=== PATIENT | female | born 1935 | race Caucasian/White ===

== ENCOUNTER → 2017-09-13 | Day surgery (SDC) | payer MEDICARE ==
[~2017-09-13] MED LIST: ASPIR 8181 MG PO; ATENOLOL100 MG PO; AZOR 10-40 MG1 EACH PO; BENICAR HCT 201 EACH PO; BENICAR20 MG PO; FENTANYL CITRATE/PF 100MCG/2 ML INJ ONE; GABADONE CAPSU1 EACH PO; LASIX20 MG PO; MIDAZOLAM HCL 2 MG/2 ML VIAL ONE; OR PHACO EYE KIT ONE; PREOP PHACO EYE KIT ONE; TOBRAMYCIN/DEXAMETHASONE(OPTH) 3.5 GM TUBE ONE
--- OUTSIDE RECORDS SUMMARY | 2017-09-13 09:59 | XMS REPORT | Clinical Summary ---
Author Author [facility] Organization [facility] Address Unknown Phone Unavailable Care Team Providers Care Marketing Editor Name Role Phone Kim Landaverde MD PCP Allergies Active Allergy Reactions Severity Noted Date Comments Codeine 09/17/2015 Meperidine 09/17/2015 Indomethacin 09/17/2015 Neomycin 09/17/2015 Polymyxin B 09/17/2015 Pentazocine Lactate 09/17/2015 Current Medications Prescription Sig. Disp. Refills Start End Date Status Date atenolol (TENORMIN) 50 MG Take 2 tablets (100 mg 180 tablet 1 Active tablet total) by mouth daily. 17 furosemide (LASIX) 20 mg Take 1 tablet (20 mg 90 tablet 1 05/05/19 Active tabletIndications: total) by mouth daily. 18 Localized edema, Essential hypertension UNABLE TO FIND Super Beets Supplement QD Active amlodipine-olmesartan Take 1 tablet by mouth Active (JAN) 5-40 mg per tablet daily. gabapentin (NEURONTIN) Take 300 mg by mouth 3 10/08/19 Discontin 300 MG capsule (three) times a day. 17 ued atenolol (TENORMIN) 50 MG Take 1 tablet (50 mg 90 tablet 3 10/24/19 10/24/19 tabletIndications: total) by mouth daily. 16 17 Essential hypertension furosemide (LASIX) 20 MG Take 1 tablet (20 mg 90 tablet 3 12/11/19 10/08/19 Discontin tabletIndications: Edema total) by mouth 2 (two) 16 17 ued times a day. JAN 5-40 mg per TAKE 1 TABLET BY MOUTH 90 tablet 0 02/05/20 Discontin tabletIndications: DAILY 16 17 ued Essential hypertension amlodipine-olmesartan TAKE 1 TABLET BY MOUTH 90 tablet 0 10/05/19 Discontin (JAN) 5-40 mg per ONCE DAILY 17 17 ued tabletIndications: Essential hypertension hydroCHLOROthiazide Take 25 mg by mouth 08/26/19 Discontin (HYDRODIURIL) 25 MG daily. 18 ued tablet aspirin (ECOTRIN) 81 MG Take 81 mg by mouth 05/05/19 Discontin enteric coated tablet daily. 18 ued clonIDINE (CATAPRES) 0.1 Take 0.1 mg by mouth. BID 11/11/19 Discontin MG tablet as directed 17 ued furosemide (LASIX) 20 mg Take 20 mg by mouth 2 11/11/19 Discontin tablet (two) times a day. Pt 17 ued taking it only once a day atenolol (TENORMIN) 50 MG Take 100 mg by mouth. 03/18/20 Discontin tablet 17 ued olmesartan (BENICAR) 40 Take 1 tablet (40 mg 30 tablet 11 12/04/19 05/05/19 Discontin MG tabletIndications: total) by mouth daily. 17 18 ued Essential hypertension furosemide (LASIX) 20 mg Take 20 mg by mouth as 05/05/19 Discontin tablet needed. 18 ued amlodipine-olmesartan Take 1 tablet by mouth 90 tablet 1 05/05/19 Discontin (JAN) 5-40 mg per daily. 18 18 ued tabletIndications: Essential hypertension Active Problems Problem Noted Date Idiopathic peripheral neuropathy 02/15/2017 Positive RONALD (antinuclear antibody) 02/15/2017 Hyperglycemia 02/15/2017 B12 deficiency 02/15/2017 Encounters Date Type Specialty Care Team Description 08/25/2017 Office Visit Internal Medicine Cassi Landaverde MD Essential hypertension; Vitamin B 12 deficiency; Vitamin D deficiency 06/02/2017 Clinical Internal Medicine Support 05/05/2017 Office Visit Internal Medicine Cassi Landaverde MD Localized edema (Primary Dx); Essential hypertension 05/03/2017 Telephone Internal Medicine Cassi Landaverde MD 03/18/2017 Refill Internal Medicine Mariaelena Ramey MA 02/15/2017 Office Visit Neurology Kim Cr MD Idiopathic peripheral neuropathy (Primary Dx); Positive RONALD (antinuclear antibody); Hyperglycemia; B12 deficiency 02/11/2017 Telephone Internal Medicine Cassi Landaverde MD 12/31/2016 Telephone Internal Medicine Mariaelena Ramey MA 12/28/2016 [facility] Radiology Cassi Lanadverde MD Annual physical exam; Encounter Screening for breast cancer 12/28/2016 [facility] Radiology Cassi Landaverde MD Annual physical exam Encounter 12/28/2016 Telephone Internal Medicine Mariaelena Ramey MA 12/28/2016 Ancillary Internal Medicine Cassi Landaverde MD Annual physical exam Orders 12/03/2016 Office Visit Internal Medicine Cassi Landaverde MD Dysuria (Primary Dx); Axonal sensorimotor neuropathy; Annual physical exam; Essential hypertension; Screening for breast cancer 11/16/2016 Lab Lab Franky Moise Jr., MD Chronic kidney disease, stage II (mild) (Primary Dx) 11/10/2016 Office Visit Internal Medicine Clauida Wilkerson MD Essential hypertension (Primary Dx) 10/22/2016 Office Visit Internal Medicine Cassi Landaverde MD Vertigo (Primary Dx) 10/20/2016 Telephone Internal Medicine Mariaelena Ramey MA 10/16/2016 [facility] Radiology Cassi Landaverde MD Lip numbness; Encounter Hx-TIA (transient ischemic attack) 10/07/2016 Office Visit Internal Medicine Cassi Landaverde MD Lip numbness (Primary Dx); Hx-TIA (transient ischemic attack) 10/07/2016 Procedure Pass Radiology 10/04/2016 Refill Internal Medicine Cassi Landaverde MD Essential hypertension after 09/12/2016 Immunizations Name Dates Previously Given Next Due Influenza Trivalent 02/02/2017, 02/07/2016, 01/19/2015 Pneumococcal Conjugate 02/07/2016 13-Valent Pneumococcal 10/07/2012 Polysaccharide Zoster 10/07/2014 Family History Medical History Relation Name Comments Heart disease Father Stroke Father Hypertension Mother Stroke Mother Relation Name Status Comments Father (Age 83) Mother (Age 75) Social History Tobacco Use Types Packs/Day Years Used Date Never Smoker Smokeless Tobacco: Never Used Alcohol Use Drinks/Week oz/Week Comments No Sex Assigned at Date Recorded Not on file Last Filed Vital Signs Vital Sign Reading Time Taken Blood Pressure 131/82 08/25/2017 10:51 AM CDT Pulse 62 08/25/2017 10:51 AM CDT Temperature 36.8 C (98.2 F) 08/25/2017 10:51 AM CDT Respiratory Rate - - Oxygen Saturation 97% 08/25/2017 10:51 AM CDT Inhaled Oxygen - - Concentration Weight 74.4 kg (164 lb) 08/25/2017 10:51 AM CDT Height 158.8 cm (5' 2.5") 08/25/2017 10:51 AM CDT Body Mass Index 29.52 08/25/2017 10:51 AM CDT Plan of Treatment Health Maintenance Due Date Last Done Comments SHINGRIX VACCINE (#1) 12/09/1987 INFLUENZA VACCINE 11/16/2017 02/02/2017, 02/07/2016, 01/19/2015 PNEUMOCOCCAL Completed 10/07/2012 POLYSACCHARIDE VACCINE AGE 65 AND OVER ZOSTER VACCINE Completed 10/07/2014 PNEUMOCOCCAL-13 Completed 02/07/2016 Results * Vitamin D 25 hydroxy level (08/26/2017 10:23 AM) Component Value Ref Range Vitamin D, 25-hydroxy 33 30 - 100 ng/mL Comment: Vitamin D Status 25-OH Vitamin D: Deficiency: <20 ng/mL Insufficiency: 20 - 29 ng/mL Optimal: > or=30 ng/mL For 25-OH Vitamin D testing on patients on D2-supplementation and patients for whom quantitation of D2 and D3 fractions is required, the QuestAssureD(TM) 25-OH VIT D, (D2,D3), LC/MS/MS is recommended: order code 05023 (patients >2yrs). For more information on this test, go to: http://education.[employer].Affymax/faq/SXI207 (This link is being provided for informational/educational purposes only.) Specimen Performing Laboratory [facility] Narrative FASTING:NO FASTING: NO * CBC with platelet and differential (08/26/2017 10:23 AM) Only the most recent of 2 results within the time period is included. Component Value Ref Range WBC 4.6 3.8 - 10.8 Thousand/uL RBC 4.22 3.80 - 5.10 Million/uL HGB 12.4 11.7 - 15.5 g/dL HCT 36.8 35.0 - 45.0 % MCV 87.2 80.0 - 100.0 fL MCH 29.4 27.0 - 33.0 pg MCHC 33.7 32.0 - 36.0 g/dL RDW 13.5 11.0 - 15.0 % Platelet count 178 140 - 400 Thousand/uL MPV 10.7 7.5 - 12.5 fL Neutrophils, absolute 3,013 1,500 - 7,800 cells/uL Lymphocytes, absolute 1,026 850 - 3,900 cells/uL Monocytes, absolute 391 200 - 950 cells/uL Eosinophils, absolute 129 15 - 500 cells/uL Basophils, absolute 41 0 - 200 cells/uL Neutrophils 65.5 % Lymphocytes 22.3 % Monocytes 8.5 % Eosinophils 2.8 % Basophils + RC 0.9 % Specimen Performing Laboratory [facility] Narrative FASTING:NO FASTING: NO * Vitamin B12 level (08/26/2017 10:23 AM) Only the most recent of 2 results within the time period is included. Component Value Ref Range Vitamin B12 728 200 - 1,100 pg/mL Specimen Performing Laboratory [facility] Narrative FASTING:NO FASTING: NO * Comprehensive metabolic panel (08/26/2017 10:23 AM) Only the most recent of 3 results within the time period is included. Component Value Ref Range Glucose 95 65 - 139 mg/dL Comment: Non-fasting reference interval BUN, whole blood 17 7 - 25 mg/dL Creatinine 0.94 (H) 0.60 - 0.93 mg/dL Comment: For patients >49 years of age, the reference limit for Creatinine is approximately 13% higher for people identified as -[place]. EGFR Non-Afr. [place] 58 (L) > OR=60 mL/min/1.73m2 EGFR 67 > OR=60 mL/min/1.73m2 BUN/creatinine ratio 18 6 - 22 (calc) Sodium 142 135 - 146 mmol/L Potassium 4.1 3.5 - 5.3 mmol/L Chloride 105 98 - 110 mmol/L CO2 30 20 - 31 mmol/L Calcium 9.4 8.6 - 10.4 mg/dL Protein 6.5 6.1 - 8.1 g/dL Albumin, S 4.2 3.6 - 5.1 g/dL Globulin, total 2.3 1.9 - 3.7 g/dL (calc) Albumin/globulin ratio 1.8 1.0 - 2.5 (calc) Total bilirubin 0.5 0.2 - 1.2 mg/dL Alkaline phosphatase 43 33 - 130 U/L AST 22 10 - 35 U/L ALT 11 6 - 29 U/L Specimen Performing Laboratory [facility] Narrative FASTING:NO FASTING: NO * ECG 12 lead (08/25/2017 10:53 AM) Component Value Ref Range Ventricular rate 59 Atrial rate 59 VT interval 274 QRSD interval 142 QT interval 448 QTC interval 443 P axis 1 72 QRS axis 1 50 T wave axis 29 EKG impression Sinus bradycardia with 1st degree AV block-Right bundle branch block-Abnormal ECG-In automated comparison with ECG of 24-APR-2011 09:48,-VT interval has increased-Right bundle branch block is now present- Specimen Performing Laboratory [facility] [address] [place] [address] * Mammo Screening w Cad Bilateral (12/28/2016 2:04 PM) Specimen Performing Laboratory [facility] [address] [place] [address] Narrative PROCEDURE: MAMMO SCREENING W CAD BILATERAL Computer aided detection was utilized for the interpretation of the digital bilateral screening mammography. INDICATION:Routine screening. COMPARISON: 10/16/2014 through 12/12/2013 DENSITY: The breasts are heterogenously dense, which may obscure small masses. FINDINGS:Scattered coarse and dystrophic benign-appearing calcifications are noted bilaterally. Vascular arterial wall calcifications are noted bilaterally. A metallic marker in the upper midline left breast denotes the site of prior benign biopsy. There is no suspicious mass, microcalcification, or architectural distortion identified. There is no significant interval change compared to prior exams. IMPRESSION:No mammographic evidence of malignancy. RECOMMENDATION: Correlation with physical exam and annual screening mammography. BI-RADS 2: BENIGN This facility is accredited by the [place] [employer] for Mammography. A negative x-ray report should not delay biopsy if a dominant or clinically suspicious mass is present.Not all cancers are identified by x-ray. [id number] * Bone Density (12/28/2016 1:30 PM) Specimen Performing Laboratory [facility] [address] [place] [address] Narrative EXAMINATION:BONE DENSITY CLINICAL HISTORY:Z00.00 Encounter for general adult medical examination without abnormal findings, post menopause.Osteoporosis screening. COMPARISON:None. The results of this study expressed as bone mineral density (BMD) were as follows: AP spine (L1- L4) BMD:0.991g/cm2 T-Score: -0.5 Right Femur (Total Mean): BMD: 0.588g/cm2 T-Score: -1.2 Impression: Osteopenia right femur. Within normal range lumbar spine [id number] A copy of this scans including a report detailing these results will follow. Note: The world health organization (WHO) has classified the patient's T-score as follows: Above (-1) as normal (-1) to (-2.5) as low (osteopenia) Below (-2.5) as abnormally low (osteoporosis, increased fracture risk) Procedure Note Hm Interface, Radiology Results Incoming - 12/28/2016 1:52 PM CDT EXAMINATION: BONE DENSITY CLINICAL HISTORY: Z00.00 Encounter for general adult medical examination without abnormal findings, post menopause. Osteoporosis screening. COMPARISON: None. The results of this study expressed as bone mineral density (BMD) were as follows: AP spine (L1- L4) BMD: 0.991 g/cm2 T-Score: -0.5 Right Femur (Total Mean): BMD: 0.588 g/cm2 T-Score: -1.2 Impression: Osteopenia right femur. Within normal range lumbar spine [id number] A copy of this scans including a report detailing these results will follow. Note: The world health organization (WHO) has classified the patient's T-score as follows: Above (-1) as normal (-1) to (-2.5) as low (osteopenia) Below (-2.5) as abnormally low (osteoporosis, increased fracture risk) * SSA/SSB antibody (12/07/2016 11:40 AM) Component Value Ref Range Sjogren's SS-A antibody <0.2 0.0 - 0.9 AI Sjogren's SS-B antibody <0.2 0.0 - 0.9 AI Specimen Performing Laboratory [facility] Narrative Performed at: - [id number] Upholstery Cleaner: Venancio Corona MD, Phone:[phone] * Immunofixation, serum (12/07/2016 11:40 AM) Component Value Ref Range Immunofixation, serum CommentComment: An apparent normal immunofixation pattern. IgG 733 700 - 1,600 mg/dL IgA 152 64 - 422 mg/dL IgM 58 26 - 217 mg/dL Specimen Performing Laboratory [facility] Narrative Performed at: [id number] Upholstery Cleaner: YENNY Cartagena MD, Phone:[phone] Performed at: [id number] Upholstery Cleaner: Venancio Corona MD, Phone:[phone] * RONALD (12/07/2016 11:40 AM) Component Value Ref Range RONALD direct Positive (A) Negative Specimen Performing Laboratory [facility] Narrative Performed at: [id number] Upholstery Cleaner: Venancio Corona MD, Phone:[phone] * Thyroid stimulating hormone (12/07/2016 11:40 AM) Component Value Ref Range TSH 4.360 0.450 - 4.500 uIU/mL Specimen Performing Laboratory [facility] Narrative Performed at: [id number] Upholstery Cleaner: Venancio Corona MD, Phone:[phone] * Vitamin B6 level, plasma (12/07/2016 11:40 AM) Component Value Ref Range Vitamin B6 11.6 2.0 - 32.8 ug/L Specimen Performing Laboratory [facility] Narrative Performed at: [id number] Upholstery Cleaner: Claudy Hair MD, Phone:[phone] * Hemoglobin A1c (12/07/2016 11:40 AM) Component Value Ref Range Hemoglobin A1C 5.4 4.8 - 5.6 % Comment: Pre-diabetes: 5.7 - 6.4 Diabetes: >6.4 Glycemic control for adults with diabetes: <7.0 Specimen Performing Laboratory [facility] Narrative Performed at:[address] [place], [place] [id number] Upholstery Cleaner: Venancio Corona MD, Phone:[phone] * Lipid panel (12/07/2016 11:40 AM) Component Value Ref Range Cholesterol 220 (H) 100 - 199 mg/dL Triglycerides 183 (H) 0 - 149 mg/dL HDL cholesterol 49 >39 mg/dL VLDL cholesterol colt 37 5 - 40 mg/dL LDL cholesterol 134 (H) 0 - 99 mg/dL calculated Non-HDL cholesterol 171 (H) 0 - 129 mg/dL Specimen Performing Laboratory [facility] Narrative Performed at: - [id number] Upholstery Cleaner: Venancio Corona MD, Phone:[phone] * POC urinalysis dipstick (12/03/2016 3:46 PM) Component Value Ref Range Color urine, POC Dark Yellow Clarity urine, POC Slightly Hazy Glucose urine, POC Negative Negative Bilirubin urine, POC Positive (A) Negative Ketones urine, POC Negative Negative Specific gravity urine, >/=1.030 1.005 - 1.030 POC Blood urine, POC Negative Negative pH urine, POC 6.0 5.0, 5.5, 6.0, 6.5, 7.0, 7.5, 8.0, 8.5 Protein urine, POC 1+ (A) Negative Urobilinogen urine, POC <2.0 <2.0 Nitrite urine, POC Negative Negative Leukocyte esterase urine, Negative Negative POC Specimen Performing Laboratory Urine * Estimated GFR (11/16/2016 10:45 AM) Component Value Ref Range GFR Non Af Amer 53 (A) mL/min/1.73 m2 GFR Af Amer 65 mL/min/1.73 m2 Comment: Chronic kidney disease: <60 mL/min/1.73m2 Kidney failure: <15 mL/min/1.73m2 The estimated GFR is calculated from the IDMS-traceable Modification of Diet in Renal Disease Equation. The accuracy of the calculation is poor when the creatinine is normal. Calculated values >90 mL/min/1.73m2 are not reported. This equation has not been validated in children (<18 years), women, the elderly (>70 years), or ethnic groups other than Caucasians and Americans. Specimen Performing Laboratory Plasma specimen [facility] DEPARTMENT OF PATHOLOGY AND GENOMIC MEDICINE [address] [place] [id number] * Urinalysis, automated with microscopy (11/16/2016 10:45 AM) Component Value Ref Range Color, UA Yellow Appearance, UA Cloudy Specific gravity, UA 1.015 1.001 - 1.035 pH, UA 5.0 5.0 - 8.5 Protein, UA 1+ (A) Negative Glucose, UA Negative Negative Ketones, UA Negative Negative Bilirubin, UA Negative Negative Blood, UA Small (A) Negative Nitrite, UA Negative Negative Urobilinogen, UA <2.0 <2.0 Leukocyte esterase, UA Large (A) Negative Epithelial cells, UA 2 /HPF Round epithelial cells, <1 0 - 1 /HPF UA WBC, UA >180 (H) 0 - 4 /HPF RBC, UA 7 (H) 0 - 2 /HPF Bacteria, UA Few None seen WBC clumps, UA Moderate (A) Yeast, UA None seen Yeast with pseudohyphae, None seen UA Specimen Performing Laboratory Urine [facility] DEPARTMENT OF PATHOLOGY AND GENOMIC MEDICINE [address] [place] [id number] * Parathyroid hormone (11/16/2016 10:45 AM) Component Value Ref Range PTH 67 (H) 15 - 65 pg/mL Specimen Performing Laboratory Blood [facility] DEPARTMENT OF PATHOLOGY AND GENOMIC MEDICINE [address] [place] [address] * MRI Brain W Wo Contrast (10/16/2016 6:18 PM) Specimen Performing Laboratory [facility] [address] [place] [address] Narrative EXAMINATION:MRI BRAIN W WO CONTRAST CLINICAL HISTORY:R20.0 Anesthesia of skin, Z86.73 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 FINDINGS: Pre and postcontrast MRI of the brain is interpreted. Diffusion imaging demonstrates no abnormal restricted diffusion. Mild involutional changes of the brain are age-appropriate. No extra-axial collection or mass effect is seen. No hemorrhage is identified. Major vascular flow-voids are preserved. No abnormal parenchymal or leptomeningeal enhancement is present. IMPRESSION: No evidence of recent infarct or other acute intracranial abnormality. Unremarkable MRI of the brain. 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 FINDINGS: Pre and postcontrast MRI of the brain is interpreted. Diffusion imaging demonstrates no abnormal restricted diffusion. Mild involutional changes of the brain are age-appropriate. No extra-axial collection or mass effect is seen. No hemorrhage is identified. Major vascular flow-voids are preserved. No abnormal parenchymal or leptomeningeal enhancement is present. IMPRESSION: No evidence of recent infarct or other acute intracranial abnormality. Unremarkable MRI of the brain. [facility]-[id number] * RONALD SCREEN W IFA W REFLEX TO TITER (10/07/2016 12:29 PM) Component Value Ref Range RONALD screen POSITIVE (A) NEGATIVE Comment: RONALD IFA is a first line screen for detecting the presence of up to approximately 150 autoantibodies in various autoimmune diseases. A positive RONALD IFA result is suggestive of autoimmune disease and reflexes to titer and pattern. Further laboratory testing may be considered if clinically indicated. Visit Physician FAQs for interpretation of all antibodies in the [place], prevalence, and association with diseases at http://Power OLEDs.P2P-Next/ faq/HVO346 RONALD pattern FEW NUCLEAR DOTS (1-6) (A) Comment: Nuclear dots (1-6 in number per cell) pattern is seen in Sjogren's syndrome, systemic lupus erythematosus (SLE), systemic sclerosis (scleroderma), polymyositis, and asymptomatic individuals. RONALD titer 1:160 (H) titer Comment: Reference Range <1:40 Negative 1:40-1:80 L ow Antibody Level >1:80 Elevated Antibody Level Specimen Performing Laboratory [facility] * Lyme total Ab w reflex (10/07/2016 12:29 PM) Component Value Ref Range Lyme Ab <0.90 index Comment: Index Interpretatio n ----- - < 0.90 Negative 0.90-1.09 Equivocal > 1.09 Positive As recommended by the Food and Drug Administration (FDA), all samples with positive or equivocal results in a Borrelia burgdorferi antibody screen will be tested using a blot method. Positive or equivocal screening test results should not be interpreted as truly positive until verified as such using a supplemental assay (e.g., B. burgdorferi blot). The screening test and/or blot for B. burgdorferi antibodies may be falsely negative in early stages of Lyme disease, including the period when erythema migrans is apparent. Specimen Performing Laboratory [facility] * Sedimentation rate (10/07/2016 12:29 PM) Component Value Ref Range Sedimentation rate 9 < OR=30 mm/h Specimen Performing Laboratory [facility] * C-reactive protein (10/07/2016 12:29 PM) Component Value Ref Range CRP 0.18 <0.80 mg/dL Comment: Please be advised that patients taking Carboxypenicillins may exhibit falsely decreased C-Reactive Protein levels due to an analytical interference in this assay. Specimen Performing Laboratory [facility] * Serum electrophoresis (10/07/2016 12:29 PM) Component Value Ref Range Protein 6.9 6.1 - 8.1 g/dL Albumin, S 4.3 3.8 - 4.8 g/dL Irmjg-[id number] 0.3 0.2 - 0.3 g/dL Ssitd-3-cesxnooo 0.8 0.5 - 0.9 g/dL Beta-1 globulin 0.4 0.4 - 0.6 g/dL Beta-2 globulin 0.3 0.2 - 0.5 g/dL Gamma, CSF 0.8 0.8 - 1.7 g/dL Interpretation Comment: Normal Electrophoretic Pattern Specimen Performing Laboratory [facility] after 09/12/2016 Insurance Payer Benefit Subscriber ID Type Phone Address Plan / Group [employer]HC MEDICARE UNITED[employer] xxxxxxxxx [employer] Home: [facility] [place] [phone]
== END | disposition home or self-care (01) ==
LOC: OR 09:56
PROVIDERS: ATTEND Ophthalmology
DX: H25.12 Age-related nuclear cataract, left eye (principal); I12.9 Hypertensive chronic kidney disease with stage 1 through stage 4 chronic kidney disease, or unspecified chronic kidney disease; N18.9 Chronic kidney disease, unspecified; G47.30 Sleep apnea, unspecified; E53.8 Deficiency of other specified B group vitamins; E55.9 Vitamin D deficiency, unspecified; Z88.1 Allergy status to other antibiotic agents; Z88.5 Allergy status to narcotic agent; Z88.8 Allergy status to other drugs, medicaments and biological substances; Z79.82 Long term (current) use of aspirin
CPT/HCPCS: 66984; J2250; V2788

== ENCOUNTER 2017-09-14 08:23 | Observation (INO) | payer MEDICARE ==
[~2017-09-14] VITALS: Ht 157.5 cm; Wt 52.8 kg
[2017-09-14] VITALS (7 sets, daily range): BP systolic 121–149; BP diastolic 68–79
[~2017-09-14 08:23] MED LIST changes: -BENICAR20 MG PO; -FENTANYL CITRATE/PF 100MCG/2 ML INJ ONE; -MIDAZOLAM HCL 2 MG/2 ML VIAL ONE; -OR PHACO EYE KIT ONE; -PREOP PHACO EYE KIT ONE; -TOBRAMYCIN/DEXAMETHASONE(OPTH) 3.5 GM TUBE ONE
--- OUTSIDE RECORDS SUMMARY | 2017-09-14 08:28 | XMS REPORT | Clinical Summary ---
Author Author [facility] Organization [facility] Address Unknown Phone Unavailable Care Team Providers Care Lead Systems Analyst Name Role Phone Kim Landaverde MD PCP [...] Telephone Internal Medicine Mariaelena Ramey MA 12/28/2016 [facility] Radiology Cassi Landaverde MD Annual physical exam; Encounter Screening for breast cancer 12/28/2016 [facility] Radiology Cassi Landaverde MD Annual physical [...] (Primary Dx) 11/10/2016 Office Visit Internal Medicine Claudia Wilkerson MD Essential hypertension (Primary Dx) 10/22/2016 Office Visit Internal Medicine Cassi Landaverde MD Vertigo (Primary Dx) 10/20/2016 Telephone Internal Medicine Mariaelena Ramey MA 10/16/2016 [facility] Radiology Cassi Landaverde MD Lip numbness; Encounter Hx-TIA (transient ischemic attack) 10/07/2016 Office Visit Internal Medicine Cassi Landaverde MD Lip numbness (Primary Dx); Hx-TIA (transient ischemic attack) 10/07/2016 Procedure Pass Radiology 10/04/2016 Refill Internal Medicine Cassi Landaverde MD Essential hypertension after 09/13/2016 Immunizations Name Dates Previously Given Next Due [...] D, (D2,D3), LC/MS/MS is recommended: order code 80882 (patients >2yrs). For more information on this test, go to: http://education.[employer].stylefruits/faq/ZLD150 (This link is being provided for informational/educational [...] approximately 13% higher for people identified as -[place]. EGFR Non-Afr. [place] 58 (L) > OR=60 mL/min/1.73m2 EGFR 67 [...] Range Ventricular rate 59 Atrial rate 59 NH interval 274 QRSD interval 142 QT interval 448 QTC interval 443 P axis 1 72 QRS axis 1 50 T wave axis 29 EKG impression Sinus bradycardia with 1st degree AV block-Right bundle branch block-Abnormal ECG-In automated comparison with ECG of 24-APR-2011 09:48,-NH interval has increased-Right bundle branch block is now present- Specimen Performing Laboratory [facility] M[facility] [address] [place] [address] * Mammo Screening w Cad Bilateral (12/28/2016 2:04 PM) Specimen Performing Laboratory [facility] [address] [place] [address] Narrative PROCEDURE: MAMMO SCREENING W CAD BILATERAL [...] BENIGN This facility is accredited by the [place] [employer] for Mammography. A negative x-ray report should not delay biopsy if a dominant or clinically suspicious mass is present.Not all cancers are identified by x-ray. DWS01 * Bone Density (12/28/2016 1:30 PM) Specimen Performing Laboratory [facility] [address] [place] [address] Narrative EXAMINATION:BONE DENSITY CLINICAL HISTORY:Z00.00 Encounter for general adult medical examination without abnormal findings, post menopause.Osteoporosis screening. COMPARISON:None. The results of this study expressed as bone mineral density (BMD) were as follows: AP spine (L1- L4) BMD:0.991g/cm2 T-Score: -0.5 Right Femur (Total Mean): BMD: 0.588g/cm2 T-Score: -1.2 Impression: Osteopenia right femur. Within normal range lumbar spine [id number] A copy of this scans including a [...] right femur. Within normal range lumbar spine [id number] A copy of this scans including a [...] Laboratory Blood [facility] Narrative Performed at: - [id number] Termite Control Servicer: Venancio Corona MD, Phone:[phone] * Immunofixation, serum (12/07/2016 11:40 AM) Component Value Ref Range Immunofixation, serum CommentComment: An apparent normal immunofixation pattern. IgG 733 700 - 1,600 mg/dL IgA 152 64 - 422 mg/dL IgM 58 26 - 217 mg/dL Specimen Performing Laboratory [facility] Narrative Performed at: [id number] Termite Control Servicer: YENNY Cartagena MD, Phone:[phone] Performed at: [id number] Termite Control Servicer: Venancio Corona MD, Phone:[phone] * RONALD (12/07/2016 11:40 AM) Component Value Ref Range RONALD direct Positive (A) Negative Specimen Performing Laboratory [facility] Narrative Performed at: [id number] Termite Control Servicer: Venancio Corona MD, Phone:[phone] * Thyroid stimulating hormone (12/07/2016 11:40 AM) Component Value Ref Range TSH 4.360 0.450 - 4.500 uIU/mL Specimen Performing Laboratory [facility] Narrative Performed at: [id number] Termite Control Servicer: Venancio Corona MD, Phone:[phone] * Vitamin B6 level, plasma (12/07/2016 11:40 AM) Component Value Ref Range Vitamin B6 11.6 2.0 - 32.8 ug/L Specimen Performing Laboratory [facility] Narrative Performed at: [id number] Termite Control Servicer: Claudy Hair MD, Phone:[phone] * Hemoglobin A1c (12/07/2016 11:40 AM) Component Value Ref Range Hemoglobin A1C 5.4 4.8 - 5.6 % Comment: Pre-diabetes: 5.7 - 6.4 Diabetes: >6.4 Glycemic control for adults with diabetes: <7.0 Specimen Performing Laboratory [facility] Narrative Performed at:[address] [place], [place] [id number] Termite Control Servicer: Venancio Corona MD, Phone:[phone] * Lipid panel (12/07/2016 11:40 AM) Component Value Ref Range Cholesterol 220 (H) 100 - 199 mg/dL Triglycerides 183 (H) 0 - 149 mg/dL HDL cholesterol 49 >39 mg/dL VLDL cholesterol colt 37 5 - 40 mg/dL LDL cholesterol 134 (H) 0 - 99 mg/dL calculated Non-HDL cholesterol 171 (H) 0 - 129 mg/dL Specimen Performing Laboratory [facility] Narrative Performed at: - [id number] Termite Control Servicer: Venancio Corona MD, Phone:[phone] * POC urinalysis dipstick (12/03/2016 3:46 PM) [...] and Americans. Specimen Performing Laboratory Plasma specimen [facility] DEPARTMENT OF PATHOLOGY AND GENOMIC MEDICINE [address] [place] [address] * Urinalysis, automated with microscopy (11/16/2016 10:45 [...] None seen UA Specimen Performing Laboratory Urine [facility] DEPARTMENT OF PATHOLOGY AND GENOMIC MEDICINE [address] [place] [address] * Parathyroid hormone (11/16/2016 10:45 AM) Component Value Ref Range PTH 67 (H) 15 - 65 pg/mL Specimen Performing Laboratory Blood [facility] DEPARTMENT OF PATHOLOGY AND GENOMIC MEDICINE [address] [place] [address] * MRI Brain W Wo Contrast (10/16/2016 6:18 PM) Specimen Performing Laboratory [facility] [address] [place] [address] Narrative EXAMINATION:MRI BRAIN W WO CONTRAST CLINICAL [...] intracranial abnormality. Unremarkable MRI of the brain. [id number] Procedure Note Interface, Radiology Results Incoming - [...] intracranial abnormality. Unremarkable MRI of the brain. [facility]-[id number] * RONALD SCREEN W IFA W REFLEX [...] for interpretation of all antibodies in the [place], prevalence, and association with diseases at http://FlexGen.[employer]/ faq/NGJ076 RONALD pattern FEW NUCLEAR DOTS (1-6) (A) [...] Albumin, S 4.3 3.8 - 4.8 g/dL Xnefq-3-caadugwg 0.3 0.2 - 0.3 g/dL Qqwjf-9-ktnqekfk 0.8 0.5 - 0.9 g/dL Beta-1 globulin 0.4 0.4 - 0.6 g/dL Beta-2 globulin 0.3 0.2 - 0.5 g/dL Gamma, CSF 0.8 0.8 - 1.7 g/dL Interpretation Comment: Normal Electrophoretic Pattern Specimen Performing Laboratory [facility] after 09/13/2016 Insurance Payer Benefit Subscriber ID Type Phone Address Plan / Group UHC MEDICARE UNITEDHC xxxxxxxxx O [employer] SOLUTIONS Home: [facility] [place] [phone]
--- OUTSIDE RECORDS SUMMARY | 2017-09-14 08:30 | XMS REPORT | Clinical Summary ---
Author Author [facility] Organization [facility] Address Unknown Phone Unavailable Care Team Providers Care Binding Bench Worker Name Role Phone Kim Landaverde MD PCP [...] Telephone Internal Medicine Mariaelena Ramey MA 12/28/2016 [facility] Radiology Cassi Landaverde MD Annual physical exam; Encounter Screening for breast cancer 12/28/2016 [facility] Radiology Cassi Landaverde MD Annual physical [...] Telephone Internal Medicine Mariaelena Ramey MA 10/16/2016 [facility] Radiology Cassi Landaverde MD Lip numbness; [...] D, (D2,D3), LC/MS/MS is recommended: order code 76954 (patients >2yrs). For more information on this test, go to: http://education.[employer].Neredekal.com/faq/ZOE845 (This link is being provided for informational/educational [...] approximately 13% higher for people identified as -[place]. EGFR Non-Afr. [place] 58 (L) > OR=60 mL/min/1.73m2 EGFR 67 [...] Range Ventricular rate 59 Atrial rate 59 MD interval 274 QRSD interval 142 QT interval 448 QTC interval 443 P axis 1 72 QRS axis 1 50 T wave axis 29 EKG impression Sinus bradycardia with 1st degree AV block-Right bundle branch block-Abnormal ECG-In automated comparison with ECG of 24-APR-2011 09:48,-MD interval has increased-Right bundle branch block is now present- Specimen Performing Laboratory [facility] [address] [place] [address] * Mammo Screening w Cad Bilateral (12/28/2016 2:04 PM) Specimen Performing Laboratory [facility] [address] [place] [address] Narrative PROCEDURE: MAMMO SCREENING W CAD BILATERAL [...] BENIGN This facility is accredited by the [place] [employer] for Mammography. A negative x-ray report should not delay biopsy if a dominant or clinically suspicious mass is present.Not all cancers are identified by x-ray. DWS01 * Bone Density (12/28/2016 1:30 PM) Specimen Performing Laboratory [facility] [address] [place] [address] Narrative EXAMINATION:BONE DENSITY CLINICAL HISTORY:Z00.00 Encounter for general adult medical examination without abnormal findings, post menopause.Osteoporosis screening. COMPARISON:None. The results of this study expressed as bone mineral density (BMD) were as follows: AP spine (L1- L4) BMD:0.991g/cm2 T-Score: -0.5 Right Femur (Total Mean): BMD: 0.588g/cm2 T-Score: -1.2 Impression: Osteopenia right femur. Within normal range lumbar spine [id number] A copy of this scans including a [...] right femur. Within normal range lumbar spine [id number] A copy of this scans including a [...] Laboratory Blood [facility] Narrative Performed at: - [id number] Line Lead: Venancio Corona MD, Phone:[phone] * Immunofixation, serum (12/07/2016 11:40 AM) Component Value Ref Range Immunofixation, serum CommentComment: An apparent normal immunofixation pattern. IgG 733 700 - 1,600 mg/dL IgA 152 64 - 422 mg/dL IgM 58 26 - 217 mg/dL Specimen Performing Laboratory [facility] Narrative Performed at: [id number] Line Lead: YENNY Cartagena MD, Phone:[phone] Performed at: [id number] Line Lead: Venancio Corona MD, Phone:[phone] * RONALD (12/07/2016 11:40 AM) Component Value Ref Range RONALD direct Positive (A) Negative Specimen Performing Laboratory [facility] Narrative Performed at: [id number] Line Lead: Venancio Corona MD, Phone:[phone] * Thyroid stimulating hormone (12/07/2016 11:40 AM) Component Value Ref Range TSH 4.360 0.450 - 4.500 uIU/mL Specimen Performing Laboratory [facility] Narrative Performed at: [id number] Line Lead: Venancio Corona MD, Phone:[phone] * Vitamin B6 level, plasma (12/07/2016 11:40 AM) Component Value Ref Range Vitamin B6 11.6 2.0 - 32.8 ug/L Specimen Performing Laboratory [facility] Narrative Performed at: [id number] Line Lead: Claudy Hair MD, Phone:[phone] * Hemoglobin A1c (12/07/2016 11:40 AM) Component Value Ref Range Hemoglobin A1C 5.4 4.8 - 5.6 % Comment: Pre-diabetes: 5.7 - 6.4 Diabetes: >6.4 Glycemic control for adults with diabetes: <7.0 Specimen Performing Laboratory [facility] Narrative Performed at:[address] [place], [place] [id number] Line Lead: Venancio Corona MD, Phone:[phone] * Lipid panel (12/07/2016 11:40 AM) Component Value Ref Range Cholesterol 220 (H) 100 - 199 mg/dL Triglycerides 183 (H) 0 - 149 mg/dL HDL cholesterol 49 >39 mg/dL VLDL cholesterol colt 37 5 - 40 mg/dL LDL cholesterol 134 (H) 0 - 99 mg/dL calculated Non-HDL cholesterol 171 (H) 0 - 129 mg/dL Specimen Performing Laboratory [facility] Narrative Performed at: - [id number] Line Lead: Venancio Corona MD, Phone:[phone] * POC urinalysis dipstick (12/03/2016 3:46 PM) [...] and Americans. Specimen Performing Laboratory Plasma specimen [facility] DEPARTMENT OF PATHOLOGY AND GENOMIC MEDICINE [address] [place] [address] * Urinalysis, automated with microscopy (11/16/2016 10:45 [...] None seen UA Specimen Performing Laboratory Urine [facility] DEPARTMENT OF PATHOLOGY AND GENOMIC MEDICINE [address] [place] [address] * Parathyroid hormone (11/16/2016 10:45 AM) Component Value Ref Range PTH 67 (H) 15 - 65 pg/mL Specimen Performing Laboratory Blood [facility] DEPARTMENT OF PATHOLOGY AND GENOMIC MEDICINE [address] [place] [address] * MRI Brain W Wo Contrast (10/16/2016 6:18 PM) Specimen Performing Laboratory [facility] [address] [place] [address] Narrative EXAMINATION:MRI BRAIN W WO CONTRAST CLINICAL [...] intracranial abnormality. Unremarkable MRI of the brain. [facility]-[id number] Procedure Note Interface, Radiology Results Incoming - [...] intracranial abnormality. Unremarkable MRI of the brain. [facility]-[id number] * RONALD SCREEN W IFA W REFLEX [...] for interpretation of all antibodies in the [place], prevalence, and association with diseases at http://ithinksport.[employer]/ faq/ZVC406 RONALD pattern FEW NUCLEAR DOTS (1-6) (A) [...] Albumin, S 4.3 3.8 - 4.8 g/dL Owiwy-2-lzxxkpso 0.3 0.2 - 0.3 g/dL Icucw-2-tuhymgfi 0.8 0.5 - 0.9 g/dL Beta-1 globulin 0.4 0.4 - 0.6 g/dL Beta-2 globulin 0.3 0.2 - 0.5 g/dL Gamma, CSF 0.8 0.8 - 1.7 g/dL Interpretation Comment: Normal Electrophoretic Pattern Specimen Performing Laboratory [facility] after 09/13/2016 Insurance Payer Benefit Subscriber ID Type Phone Address Plan / Group UHC MEDICARE UNITEDHC xxxxxxxxx O [employer] SOLUTIONS Home: [facility] [place] [phone]
[2017-09-14 09:02] LABS: BASOPHILS % 0.3 % (0.0-1.0); EOSINOPHILS # (AUTO) 0.1 (0.0-0.4); EOSINOPHILS % 1.8 % (0.0-6.0); HEMATOCRIT 38.3 % (34.2-44.1); HEMOGLOBIN 12.4 g/dL (12.0-16.0); LYMPHOCYTES % 16.1 % (18.0-39.1); MEAN CORPUSCULAR HEMOGLOBIN 28.9 pg (28-32); MEAN CORPUSCULAR HGB CONC 32.4 g/dL (31-35); MEAN CORPUSCULAR VOLUME 89.3 fL (81-99); MONOCYTES # (AUTO) 0.4 (0.2-0.8); MONOCYTES % 7.2 % (4.4-11.3); NEUTROPHILS # (AUTO) 4.4 (2.1-6.9); NEUTROPHILS % 74.3 % (38.7-80.0); PLATELET COUNT 156 x10e3/uL (140-360); RED BLOOD COUNT 4.29 x10e6/uL (3.6-5.1); RED CELL DISTRIBUTION WIDTH 13.8 % (11.7-14.4)
[2017-09-14 09:19] LABS: ALBUMIN 3.9 g/dL (3.5-5.0); ALBUMIN/GLOBULIN RATIO 1.3 (0.8-2.0); ANION GAP 12.1 mmol/L (8-16); CALCIUM 9.8 mg/dL (8.4-10.2); POTASSIUM 4.1 mmol/L (3.5-5.1)
[2017-09-14 09:29] LABS: CREATINE KINASE MB 2.7 ng/mL (0-5.0)
[2017-09-14] MEDS ORDERED: SODIUM CHLORIDE FLUSH 10 ML SYR INJ PRN (09:45)
--- NOTE | 2017-09-14 09:45 | Diagnostic Imaging Report ---
PROCEDURE: CHEST SINGLE (PORTABLE) COMPARISON: 05/19/2015. INDICATIONS: AMS, DIZZINESS FINDINGS: The lungs are well-inflated. No consolidation or pneumothorax. Stable trace left pleural effusion versus focal basal pleural thickening. Stable cardiomediastinal contour with tortuosity and atherosclerotic calcification of the thoracic aorta. No overt pulmonary edema. No acute osseous abnormality. CONCLUSION: No acute cardiopulmonary abnormality. Dictated by: Cooper Schwab M.D. on 09/14/2017 at 9:48 Electronically approved by: Cooper Schwab M.D. on 09/14/2017 at 9:48
--- NOTE | 2017-09-14 09:55 | Diagnostic Imaging Report ---
Exam: Head CT without contrast History: Syncope Comparison studies: Head CT 05/19/2015, 05/29/2014 and brain MRI 12/20/2007. Technique: Axial images were obtained from the skull base to the vertex. Coronal and sagittal images reconstructed from the axial data. Intravenous contrast: None Findings: Scalp: No abnormalities. Bones: No fractures, blastic or lytic lesions. Brain sulci: Appropriate for age. Ventricles: Normal in size and configuration. No hydrocephalus. Extra-axial spaces: No mass or fluid collection. Incidental subcentimeter exostosis at the right frontal convexity without mass effect. Parenchyma: No mass, acute hemorrhage or acute cortical vascular insults. Subtle hypodensities in the supratentorial white matter are nonspecific but most compatible with chronic small vessel ischemic changes. Sellar/suprasellar region: No abnormalities. Craniocervical junction: Patent foramen magnum. No Chiari one malformation. Incidental findings: Atherosclerotic calcifications in the carotid siphons. IMPRESSION: 1. No acute intracranial abnormalities. 2. Mild supratentorial chronic microvascular ischemic changes. 3. No changes from the previous head CT of 05/19/2015. Signed by: Dr. Cooper Sanabria M.D. on 09/14/2017 9:52 AM
[2017-09-14] MEDS ORDERED: DIPHENOXYLATE/ATROPINE TAB PO PRN (10:00)
--- OUTSIDE RECORDS SUMMARY | 2017-09-14 10:14 | XMS REPORT ---
Author Author [facility] Address Unknown Phone Unavailable Care Team Providers Care Special Deputy Sheriff Name Role Phone MICHELA BULLOCK Unavailable Unavailable Problems This patient has no known problems. Allergies, Adverse Reactions, Alerts This patient has no known allergies or adverse reactions. Medications This patient has no known medications. Results Test Description Test Time Test Comments Text Results Atomic Results Result Comments CHEST SINGLE (PORTABLE) [place] [address] Patient Name: RAE HOLBROOK MR #: [id number] : 1935 Age/Sex: 81/F Req #: [id number] Adm Physician: Ordered by: MICHELA BULLOCK MD Report #: [id number] Location: ER Room/Bed: Procedure: [id number] DX/CHEST SINGLE (PORTABLE) Exam Date: 09/14/17 Exam Time: 934 REPORT STATUS: Signed PROCEDURE: CHEST SINGLE (PORTABLE) COMPARISON: 05/19/2015. INDICATIONS: AMS, DIZZINESS FINDINGS: The lungs are well-inflated. No consolidation or pneumothorax. Stable trace left pleural effusion versus focal basal pleural thickening. Stable cardiomediastinal contour with tortuosity and atherosclerotic calcification of the thoracic aorta. No overt pulmonary edema. No acute osseous abnormality. CONCLUSION: No acute cardiopulmonary abnormality. Dictated by: Kody Vivar M.D. on 2017 at 9:48 Electronically approved by: Kody Vivar M.D. on 09/14/2017 at 9:48 Dictated By: KODY VIVAR MD 7 Transcribed By: LETY on 09/14/17947 COPY TO: MICHELA BULLOCK MD CT BRAIN WO [place] [address] Patient Name: RAE HOLBROOK MR #: [id number] : 1935 Age/Sex: 81/F Req #: [id number] Adm Physician: Ordered by: MICHELA BULLOCK MD Report #: [id number] Location: ER Room/Bed: Procedure: [id number] CT/CT BRAIN WO Exam Date: 09/14/17 Exam Time: 919 REPORT STATUS: Signed Exam: Head CT without contrast History: Syncope Comparison studies: Head CT 05/19/2015, 05/29/2014 and brain MRI 2007. Technique: Axial images were obtained from the skull base to the vertex. Coronal and sagittal images reconstructed from the axial data. Intravenous contrast: None Findings: Scalp: No abnormalities. Bones : No fractures, blastic or lytic lesions. Brain sulci: Appropriate for age. Ventricles: Normal in size and configuration. No hydrocephalus. Extra- axial spaces: No mass or fluid collection. Incidental subcentimeter exostosis at the right frontal convexity without mass effect. Parenchyma: No mass , acute hemorrhage or acute cortical vascular insults. Subtle hypodensities in the supratentorial white matter are nonspecific but most compatible with chronic small vessel ischemic changes. Sellar/suprasellar region: No abnormalities. Craniocervical junction: Patent foramen magnum. No Chiari one malformation. Incidental findings: Atherosclerotic calcifications in the carotid siphons. IMPRESSION: 1. No acute intracranial abnormalities. 2. Mild supratentorial chronic microvascular ischemic changes. 3. No changes from the previous head CT of 05/19/2015. Signed by : Dr. Kody Sanabria M.D. on 09/14/2017 9:52 AM Dictated By: KODY SANABRIA MD 1 Transcribed By: JHONNY on 09/14/17951 COPY TO: MICHELA BULLOCK MD
--- OUTSIDE RECORDS SUMMARY | 2017-09-14 10:14 | XMS REPORT | Clinical Summary ---
Author Author [facility] Organization [facility] Address Unknown Phone Unavailable Care Team Providers Care Collision Technician Name Role Phone Kim Landaverde MD PCP [...] Telephone Internal Medicine Mariaelena Ramey MA 12/28/2016 [facility] Radiology Cassi Landaverde MD Annual physical exam; Encounter Screening for breast cancer 12/28/2016 [facility] Radiology Cassi Landaverde MD Annual physical exam [...] Telephone Internal Medicine Mariaelena Ramey MA 10/16/2016 [facility] Radiology Cassi Landaverde MD Lip numbness; Encounter [...] D, (D2,D3), LC/MS/MS is recommended: order code 77429 (patients >2yrs). For more information on this test, go to: http://education.efectivox.Logan/faq/SPD884 (This link is being provided for informational/educational [...] approximately 13% higher for people identified as -Angolan. EGFR Non-Afr. Angolan 58 (L) > OR=60 mL/min/1.73m2 EGFR 67 [...] Range Ventricular rate 59 Atrial rate 59 MN interval 274 QRSD interval 142 QT interval 448 QTC interval 443 P axis 1 72 QRS axis 1 50 T wave axis 29 EKG impression Sinus bradycardia with 1st degree AV block-Right bundle branch block-Abnormal ECG-In automated comparison with ECG of 24-APR-2011 09:48,-MN interval has increased-Right bundle branch block is now present- Specimen Performing Laboratory [facility] [address] [address] [place] [address] * Mammo Screening w Cad Bilateral (12/28/2016 2:04 PM) Specimen Performing Laboratory [facility] [address] [place] [address] Narrative PROCEDURE: MAMMO SCREENING W CAD BILATERAL [...] BENIGN This facility is accredited by the [place] [employer] for Mammography. A negative x-ray report should not delay biopsy if a dominant or clinically suspicious mass is present.Not all cancers are identified by x-ray. [id number] * Bone Density (12/28/2016 1:30 PM) Specimen Performing Laboratory [facility] [address] [place] [address] Narrative EXAMINATION:BONE DENSITY CLINICAL HISTORY:Z00.00 Encounter for general adult medical examination without abnormal findings, post menopause.Osteoporosis screening. COMPARISON:None. The results of this study expressed as bone mineral density (BMD) were as follows: AP spine (L1- L4) BMD:0.991g/cm2 T-Score: -0.5 Right Femur (Total Mean): BMD: 0.588g/cm2 T-Score: -1.2 Impression: Osteopenia right femur. Within normal range lumbar spine [id number] A copy of this scans including a [...] right femur. Within normal range lumbar spine [id number] A copy of this scans including a [...] Laboratory Blood [facility] Narrative Performed at: - [id number] Plant Changer: Venancio Corona MD, Phone:[phone] * Immunofixation, serum (12/07/2016 11:40 AM) Component Value Ref Range Immunofixation, serum CommentComment: An apparent normal immunofixation pattern. IgG 733 700 - 1,600 mg/dL IgA 152 64 - 422 mg/dL IgM 58 26 - 217 mg/dL Specimen Performing Laboratory Blood [facility] Narrative Performed at: [id number] Plant Changer: YENNY Cartagena MD, Phone:[phone] Performed at: [id number] Plant Changer: Venancio Corona MD, Phone:[phone] * RONALD (12/07/2016 11:40 AM) Component Value Ref Range RONALD direct Positive (A) Negative Specimen Performing Laboratory Blood [facility] Narrative Performed at: [id number] Plant Changer: Venancio Corona MD, Phone:[phone] * Thyroid stimulating hormone (12/07/2016 11:40 AM) Component Value Ref Range TSH 4.360 0.450 - 4.500 uIU/mL Specimen Performing Laboratory [facility] Narrative Performed at: [id number] Plant Changer: Venancio Corona MD, Phone:[phone] * Vitamin B6 level, plasma (12/07/2016 11:40 AM) Component Value Ref Range Vitamin B6 11.6 2.0 - 32.8 ug/L Specimen Performing Laboratory Blood [facility] Narrative Performed at: [id number] Plant Changer: Claudy Hair MD, Phone:[phone] * Hemoglobin A1c (12/07/2016 11:40 AM) Component Value Ref Range Hemoglobin A1C 5.4 4.8 - 5.6 % Comment: Pre-diabetes: 5.7 - 6.4 Diabetes: >6.4 Glycemic control for adults with diabetes: <7.0 Specimen Performing Laboratory Blood [facility] Narrative Performed at:[address] [place], [place] [id number] Plant Changer: Venancio Corona MD, Phone:[phone] * Lipid panel (12/07/2016 11:40 AM) Component Value Ref Range Cholesterol 220 (H) 100 - 199 mg/dL Triglycerides 183 (H) 0 - 149 mg/dL HDL cholesterol 49 >39 mg/dL VLDL cholesterol colt 37 5 - 40 mg/dL LDL cholesterol 134 (H) 0 - 99 mg/dL calculated Non-HDL cholesterol 171 (H) 0 - 129 mg/dL Specimen Performing Laboratory Blood [facility] Narrative Performed at: - [id number] Plant Changer: Venancio Corona MD, Phone:[phone] * POC urinalysis dipstick (12/03/2016 3:46 PM) [...] and Americans. Specimen Performing Laboratory Plasma specimen [facility] DEPARTMENT OF PATHOLOGY AND GENOMIC MEDICINE [address] [place] [phone] * Urinalysis, automated with microscopy (11/16/2016 10:45 [...] None seen UA Specimen Performing Laboratory Urine [facility] DEPARTMENT OF PATHOLOGY AND GENOMIC MEDICINE [address] [place] [id number] * Parathyroid hormone (11/16/2016 10:45 AM) Component Value Ref Range PTH 67 (H) 15 - 65 pg/mL Specimen Performing Laboratory Blood [facility] DEPARTMENT OF PATHOLOGY AND GENOMIC MEDICINE [address] [place] [id number] * MRI Brain W Wo Contrast (10/16/2016 6:18 PM) Specimen Performing Laboratory [facility] [address] [place] [address] Narrative EXAMINATION:MRI BRAIN W WO CONTRAST CLINICAL [...] intracranial abnormality. Unremarkable MRI of the brain. [facility]-[id number] Procedure Note Interface, Radiology Results Incoming - [...] intracranial abnormality. Unremarkable MRI of the brain. [facility]-[id number] * RONALD SCREEN W IFA W REFLEX [...] for interpretation of all antibodies in the [place], prevalence, and association with diseases at http://[employer]HooftyMatch/ faq/RUW045 RONALD pattern FEW NUCLEAR DOTS (1-6) (A) [...] Albumin, S 4.3 3.8 - 4.8 g/dL Hmbbe-9-wwsbigkg 0.3 0.2 - 0.3 g/dL Pwsey-4-qmbmgdhq 0.8 0.5 - 0.9 g/dL Beta-1 globulin 0.4 0.4 - 0.6 g/dL Beta-2 globulin 0.3 0.2 - 0.5 g/dL Gamma, CSF 0.8 0.8 - 1.7 g/dL Interpretation Comment: Normal Electrophoretic Pattern Specimen Performing Laboratory Blood [facility] after 09/13/2016 Insurance Payer Benefit Subscriber ID Type Phone Address Plan / Group UHC MEDICARE UNITEDHC xxxxxxxxx [employer] SOLUTIONS Home: [facility] [id number]
[2017-09-14] MEDS ORDERED: BENICAR20 MG PO (10:43)
[2017-09-14 11:01] LABS: ANISOCYTOSIS SLIG; HYPOCHROMASIA SLIGHT; PLATELET ESTIMATE ADEQUATE; PLATELET MORPHOLOGY COMMENT FEW LARGE; POIKILOCYTOSIS MODERATE; RBC MORPHOLOGY COMMENT NORMAL
[2017-09-14] MEDS ORDERED: ONDANSETRON HCL INJ 2 MG/ML VIAL IV PRN (11:45)
[2017-09-14] MEDS ORDERED: ONDANSETRON HCL 4 MG ORAL DISINTEGRATING TAB SL PRN (12:00)
[2017-09-14] MEDS: DEXTROSE 5%/0.45% SOD CHL 1,000 ML IV SCH (12:05)
[2017-09-14] MEDS: OLMESARTAN 20 MG TAB PO SCH (15:50)
[2017-09-14 17:52] LABS: CREATINE KINASE 76 IU/L (29-168)
[2017-09-14] MEDS ORDERED: ATENOLOL 100 MG TAB PO SCH (21:00)
[2017-09-15] VITALS: BP 142/75
[2017-09-15] MEDS: DEXTROSE 5%/0.45% SOD CHL 1,000 ML IV SCH (00:33)
[2017-09-15 05:00] VITALS: BP 169/80
[2017-09-15 06:53] LABS: CREATINE KINASE 56 IU/L (29-168)
[2017-09-15 07:29] VITALS: BP 150/81
[2017-09-15] MEDS ORDERED: ASPIRIN 81 MG CHEW TAB PO SCH (09:00)
[2017-09-15] MEDS: OLMESARTAN 20 MG TAB PO SCH (09:44)
[2017-09-15 11:23] VITALS: BP 150/81
[2017-09-15 11:26] VITALS: BP 158/88
== END 2017-09-15 13:06 | disposition home or self-care (01) ==
LOC: ER 08:27 → ERHOLD 10:11 → IMCU 10:37
DX: R55 Syncope and collapse (principal); Z96.653 Presence of artificial knee joint, bilateral; I10 Essential (primary) hypertension; G62.9 Polyneuropathy, unspecified; F41.9 Anxiety disorder, unspecified
CPT/HCPCS: 36415 ×2; 70450; 71045; 80053; 82550 ×2; 82553 ×2; 82948; 84484 ×2; 85025; 93005; 99284; G0378 ×2

== ENCOUNTER → 2017-10-04 | Day surgery (SDC) | payer MEDICARE, OTHER ==
[~2017-10-04] MED LIST changes: +AMLODIPINE PO; +BENICAR20 MG PO; +FUROSEMIDE20 MG PO; +HYDROCHLOROTHIA25 MG; +MECLIZINE HCL12.5 MG PO; +MIDAZOLAM HCL 2 MG/2 ML VIAL ONE; +OLMESARTAN PO; +OR PHACO EYE KIT ONE; +PREOP PHACO EYE KIT ONE
== END | disposition home or self-care (01) ==
LOC: OR 09:12
PROVIDERS: ATTEND Ophthalmology
DX: H25.11 Age-related nuclear cataract, right eye (principal); I10 Essential (primary) hypertension; Z79.82 Long term (current) use of aspirin
CPT/HCPCS: 66984; J2250

== ENCOUNTER → 2018-04-01 | Day surgery (SDC) | payer MEDICARE ==
[2018-03-27 11:41] LABS: BASOPHILS % 0.8 % (0.0-1.0); EOSINOPHILS # (AUTO) 0.1 (0.0-0.4); EOSINOPHILS % 2.7 % (0.0-6.0); HEMATOCRIT 39.5 % (34.2-44.1); HEMOGLOBIN 12.8 g/dL (12.0-16.0); LYMPHOCYTES # (AUTO) 1.1 (1.0-3.2); LYMPHOCYTES % 23.3 % (18.0-39.1); MEAN CORPUSCULAR HEMOGLOBIN 28.7 pg (28-32); MEAN CORPUSCULAR HGB CONC 32.4 g/dL (31-35); MEAN CORPUSCULAR VOLUME 88.6 fL (81-99); MONOCYTES # (AUTO) 0.4 (0.2-0.8); MONOCYTES % 8.2 % (4.4-11.3); NEUTROPHILS # (AUTO) 3.2 (2.1-6.9); NEUTROPHILS % 64.8 % (38.7-80.0); PLATELET COUNT 192 x10e3/uL (140-360); RED BLOOD COUNT 4.46 x10e6/uL (3.6-5.1); RED CELL DISTRIBUTION WIDTH 13.4 % (11.7-14.4)
[~2018-04-01] MED LIST changes: +FENTANYL CITRATE/PF 100MCG/2 ML INJ ONE; +HYOSCYAMINE SULFATE 0.5 MG/ML INJ ONE; +LIDOCAINE HCL 2% LOCAL INJ 5 ML SDV VIAL INJ ONE; -OR PHACO EYE KIT ONE; -PREOP PHACO EYE KIT ONE; +PROPOFOL IV EMULSION 10 MG/ML 50 ML VIAL ONE
--- NOTE | 2018-04-01 20:06 | Operative Report ---
DATE OF PROCEDURE: April 01, 2018 REFERRING PHYSICIAN: Dr. Kim Hutton. PROCEDURES PERFORMED 1. Esophagogastroduodenoscopy with esophageal dilatation and biopsies. 2. Colonoscopy with polypectomy and biopsies. INDICATIONS FOR EGD: Dysphagia. INDICATIONS FOR COLONOSCOPY: Personal history of colon polyps, chronic intermittent diarrhea. MEDICATION: Patient was done under MAC. Please see anesthesiologist's note. PROCEDURE: With the patient in left lateral decubitus position, a flexible fiberoptic Olympus gastroscope was introduced into the esophagus under direct visualization without any difficulty. There was some patchy erythema noted in distal esophagus. A mild stricture was noted at the GE junction. It was somewhat nodular, biopsies were obtained, and stricture was dilated to size 52-Indonesian Justice. The scope was then advanced with ease into the stomach. Mucosa overlying the antrum and the body revealed some patchy erythema and ccvr-[id number]-plbcsqte edema and biopsies were obtained and sent to stain for H. pylori. The pylorus was of normal contour and shape, was intubated with ease, and the scope was advanced all the way to the 2nd portion of the duodenum. There was a diverticulum in the proximal 2nd portion of the duodenum that was noted. The scope was then withdrawn slowly. Mucosa overlying the duodenal bulb appeared to be within normal limits. The scope was then withdrawn back into the stomach and retroflexed and mucosa overlying the fundus and the cardia appeared to be within normal limits. The scope was then straightened out and was subsequently withdrawn. Patient tolerated the procedure well. IMPRESSION 1. Distal esophagitis, mild. 2. 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 3. Gastritis, biopsied. Biopsies sent to stain for H. pylori. PLAN: Follow up histology. Initiate Protonix 40 mg 1 p.o. q.a.m. a.c. Patient was then turned around and after adequate lubrication of the anal canal, a flexible fiberoptic Olympus colonoscope was inserted into the rectum with ease and advanced all the way to the cecum. Mucosa overlying the cecum appeared to be within normal limits. The scope was then withdrawn slowly and one polyp was hot biopsied from the ascending colon. The transverse colon appeared to be within normal limits. Mild inflammatory changes were noted in the left colon. Random biopsies were obtained. Diverticular disease was noted to involve the sigmoid colon. One polyp was snared and one polyp was hot biopsied from the sigmoid colon. One polyp was hot biopsied from the rectum. The scope was then retroflexed into the distal rectum and small internal hemorrhoids were noted, none of which was actively bleeding. The scope was then straightened out and was subsequently withdrawn after securing an adequate stool specimen that was sent for the appropriate stool studies. Patient tolerated the procedure well. IMPRESSION 1. Ascending colon polyp, hot biopsied. 2. Mild patchy left-sided colitis. 3. Diverticulosis. 4. Sigmoid colon polyps x2, one snared and one hot biopsied. 5. Rectal polyp x1, hot biopsied. 6. Internal hemorrhoids, none actively bleeding. PLAN: Follow up histology. Follow up stool studies. Initiate VSL #3 one p.o. q.d. and Bentyl 10 mg 1 p.o. t.i.d. There is no need for any followup colonoscopy on this patient. Job#: [id number] RTY cc:Guru HUTTON MD
[2018-04-01 21:24] LABS: WBC,FECAL (FECAL LACTOFERRIN) NEGATIVE (NEGATIVE)
[2018-04-02 12:11] LABS: C DIFFICILE TOXIN A&B AMP PROB NEGATIVE (NEGATIVE)
--- OUTSIDE RECORDS SUMMARY | 2018-04-03 13:42 | XMS REPORT | Clinical Summary ---
Author Author [facility] Address Unknown Phone Unavailable Care Team Providers Care General Production Laborer Name Role Phone Cassi Landaverde MD PCP Allergies Comments Active Allergy Reactions Severity Noted Date Codeine 09/17/2015 Meperidine 09/17/2015 Indomethacin 09/17/2015 Neomycin 09/17/2015 Polymyxin B 09/17/2015 Pentazocine Lactate 09/17/2015 Medications End Date Status Medication Sig Dispensed Refills Start Date Active UNABLE TO FIND Super Beets 0 Supplement QD Active amlodipine-olmesartan Take 1 tablet 0 (JAN) 5-40 mg per tablet by mouth daily. Active meloxicam (MOBIC) 7.5 mg TAKE 1 90 tablet 0 tablet TABLET(7.5 8 MG) BY MOUTH DAILY NEEDED FOR MODERATE PAIN Active atenolol (TENORMIN) 50 MG TAKE 2 180 tablet 0 tablet TABLETS(100 8 MG) BY MOUTH DAILY Active furosemide (LASIX) 20 mg TAKE 1 90 tablet 0 tabletIndications: TABLET(20 MG) 8 Localized edema, BY MOUTH Essential hypertension DAILY Active amlodipine-olmesartan TAKE 1 TABLET 90 tablet 0 (JAN) 5-40 mg per BY MOUTH 8 tabletIndications: DAILY Essential hypertension 08/25/2017 Discontinued hydroCHLOROthiazide Take 25 mg by 0 (HYDRODIURIL) 25 MG mouth daily. tablet 05/05/2017 Discontinued aspirin (ECOTRIN) 81 MG Take 81 mg by 0 enteric coated tablet mouth daily. 05/05/2017 Discontinued olmesartan (BENICAR) 40 Take 1 tablet 30 tablet 11 MG tabletIndications: (40 mg total) 7 Essential hypertension by mouth daily. 01/16/2018 Discontinued atenolol (TENORMIN) 50 MG Take 2 180 tablet 1 tablet tablets (100 7 mg total) by mouth daily. 05/05/2017 Discontinued furosemide (LASIX) 20 mg Take 20 mg by 0 tablet mouth as needed. 01/31/2018 Discontinued furosemide (LASIX) 20 mg Take 1 tablet 90 tablet 1 tabletIndications: (20 mg total) 8 Localized edema, by mouth Essential hypertension daily. 06/02/2017 Discontinued amlodipine-olmesartan Take 1 tablet 90 tablet 1 (JAN) 5-40 mg per by mouth 8 tabletIndications: daily. Essential hypertension 09/28/2017 Discontinued meclizine (ANTIVERT) 25 Take 25 mg by 0 mg tablet mouth as needed for dizziness. 09/30/2017 Discontinued meclizine (ANTIVERT) 25 Take 1 tablet 30 tablet 4 mg tablet (25 mg total) 8 by mouth as needed for dizziness. 10/30/2017 meclizine (ANTIVERT) 25 Take 1 tablet 30 tablet 4 mg tablet (25 mg total) 8 by mouth 3 (three) times a day as needed for dizziness for up to 30 days. 12/21/2017 Discontinued meloxicam (MOBIC) 7.5 mg Take 1 tablet 30 tablet 0 tablet (7.5 mg 8 total) by mouth daily as needed for moderate pain for up to 30 days. Active Problems Problem Noted Date Idiopathic peripheral neuropathy 02/15/2017 Positive ROANLD (antinuclear antibody) 02/15/2017 Hyperglycemia 02/15/2017 B12 deficiency 02/15/2017 Encounters Care Team Description Date Type Specialty Cassi Landaverde MD Essential hypertension 03/13/2018 Refill Internal Medicine Cassi Landaverde MD Localized edema; Essential hypertension 01/31/2018 Refill Internal Medicine Cassi Landaverde MD Encounter for screening for malignant neoplasm of breast 01/20/2018 Hospital Radiology Encounter Cassi Landaverde MD Encounter for screening for malignant neoplasm of breast (Primary Dx) 01/18/2018 Transcribe Access Orders Cassi Landaverde MD 01/16/2018 Refill Internal Medicine Cassi Landaverde MD 12/21/2017 Refill Internal Medicine Mariaelena Ramey MA 12/20/2017 Telephone Internal Medicine Mariaelena Ramey MA 09/30/2017 Refill Internal Medicine Cassi Landaverde MD Cortical age-related cataract of both eyes (Primary Dx) 09/28/2017 Office Visit Internal Medicine Cassi Landaverde MD Essential hypertension; Vitamin B 12 deficiency; Vitamin D deficiency 08/25/2017 Office Visit Internal Medicine 06/02/2017 Clinical Internal Medicine Support Cassi Landaverde MD Localized edema (Primary Dx); Essential hypertension 05/05/2017 Office Visit Internal Medicine Cassi Landaverde MD 05/03/2017 Telephone Internal Medicine after 04/02/2017 Immunizations Name Dates Previously Given Next Due Influenza Trivalent 02/02/2017, 02/07/2016, 01/19/2015 Pneumococcal Conjugate 02/07/2016 13-Valent Pneumococcal 10/07/2012 Polysaccharide Zoster 10/07/2014 Family History Medical History Relation Name Comments Heart disease Father Stroke Father Hypertension Mother Stroke Mother Relation Name Status Comments Father (Age 83) Mother (Age 75) Social History Date Tobacco Use Types Packs/Day Years Used Never Smoker Smokeless Tobacco: Never Used Alcohol Use Drinks/Week oz/Week Comments No Sex Assigned at Date Recorded Not on file Industry Job Start Date Occupation Not on file Not on file Not on file Travel End Travel History Travel Start No recent travel history available. Last Filed Vital Signs Time Taken Vital Sign Reading 09/28/2017 10:50 AM CDT Blood Pressure 147/84 09/28/2017 10:50 AM CDT Pulse 70 09/28/2017 10:50 AM CDT Temperature 36.8 C (98.3 F) - Respiratory Rate - 09/28/2017 10:50 AM CDT Oxygen Saturation 96% - Inhaled Oxygen - Concentration 09/28/2017 10:50 AM CDT Weight 73.9 kg (163 lb) 09/28/2017 10:50 AM CDT Height 158.8 cm (5' 2.5") 09/28/2017 10:50 AM CDT Body Mass Index 29.34 Plan of Treatment Health Maintenance Due Date Last Done Comments SHINGLES VACCINES (1 of 12/09/1987 2) INFLUENZA VACCINE 11/16/2017 02/02/2017, 02/07/2016, 01/19/2015 PNEUMOCOCCAL Completed 10/07/2012 POLYSACCHARIDE VACCINE AGE 65 AND OVER PNEUMOCOCCAL-13 Completed 02/07/2016 Procedures Comments Procedure Name Priority Date/Time Associated Diagnosis MAMMO BREAST SCREEN Routine 01/20/2018 Encounter for screening TOMOSYNTHESIS BILATERAL 3:06 PM CDT for malignant neoplasm of breast VITAMIN D 25 HYDROXY Routine 08/26/2017 Vitamin D deficiency LEVEL 10:23 AM CDT VITAMIN B12 LEVEL Routine 08/26/2017 Vitamin B 12 deficiency 10:23 AM CDT CBC WITH PLATELET AND Routine 08/26/2017 Vitamin B 12 deficiency DIFFERENTIAL 10:23 AM CDT COMPREHENSIVE METABOLIC Routine 08/26/2017 Essential hypertension PANEL 10:23 AM CDT ECG 12-LEAD Routine 08/25/2017 Essential hypertension 10:53 AM CDT after 04/02/2017 Results * Mammo Breast Screen Tomosynthesis Bilateral (01/20/2018 3:06 PM CDT) Narrative Performed At PROCEDURE: MAMMO BREAST SCREEN TOMOSYNTHESIS BILATERAL [facility] Computer aided detection was utilized for the interpretation. Bilateral digital screening mammogram was performed with tomosynthesis. COMPARISON EXAMS: [id number] DENSITY:There are scattered areas of fibroglandular density. FINDINGS: No suspicious finding is seen. There are vascular calcifications and a few benign-appearing calcifications. A biopsy clip is in the left breast. IMPRESSION: No mammographic evidence of malignancy. Recommend annual screening mammography and correlation with physical exam. BI-RADS 2:BENIGN This facility is accredited by the [place] [employer] for Mammography. A negative x-ray report should not delay biopsy if a dominant or clinically suspicious mass is present.Not all cancers are identified by x-ray. [id number] Performing Organization Address City/State/Zipcode Phone Number [facility] [phone] [place] [address] * Vitamin D 25 hydroxy level (08/26/2017 10:23 AM CDT) Vitamin D, 25-hydroxy 33 30 - 100 ng/mL [facility] Comment: [place] Vitamin D Status 25-OH Vitamin D: Deficiency: <20 ng/mL Insufficiency: 20 - 29 ng/mL Optimal: > or=30 ng/mL For 25-OH Vitamin D testing on patients on D2-supplementation and patients for whom quantitation of D2 and D3 fractions is required, the QuestAssureD(TM) 25-OH VIT D, (D2,D3), LC/MS/MS is recommended: order code 48177 (patients >2yrs). For more information on this test, go to: http://education.eCollect.Kiip/faq/PCY167 (This link is being provided for informational/educational purposes only.) Specimen Blood Narrative Performed At FASTING:NO [facility] FASTING: NO Resulting Agency Comment Performing Organization Information: Site ID: [id number] Name: [facility] Address: [address] [place] [id number] Director: Zena Abreu Performing Organization Address City/State/Zipcode Phone Number [employer] [place] [address] [place] [phone] * CBC with platelet and differential (08/26/2017 10:23 AM CDT) WBC 4.6 3.8 - 10.8 Thousand/uL [employer] [place] RBC 4.22 3.80 - 5.10 Million/uL [employer] [place] HGB 12.4 11.7 - 15.5 g/dL [employer] [place] HCT 36.8 35.0 - 45.0 % [employer] [place] MCV 87.2 80.0 - 100.0 fL [employer] [place] MCH 29.4 27.0 - 33.0 pg [employer] [place] MCHC 33.7 32.0 - 36.0 g/dL [employer] [place] RDW 13.5 11.0 - 15.0 % [employer] [place] Platelet count 178 140 - 400 Thousand/uL [employer] [place] MPV 10.7 7.5 - 12.5 fL [employer] [place] Neutrophils, absolute 3,013 1,500 - 7,800 cells/uL [employer] [place] Lymphocytes, absolute 1,026 850 - 3,900 cells/uL [employer] [place] Monocytes, absolute 391 200 - 950 cells/uL [employer] [facility] [place] Eosinophils, absolute 129 15 - 500 cells/uL [employer] [facility] [facility] [place] Basophils, absolute 41 0 - 200 cells/uL [employer] [facility] [place] Neutrophils 65.5 % [employer] [place] Lymphocytes 22.3 % [employer] [place] Monocytes 8.5 % [employer] [facility] [facility] [place] Eosinophils 2.8 % [employer] [facility] [facility] [place] Basophils + RC 0.9 % [employer] [facility] [facility] [place] Specimen Blood Narrative Performed At FASTING:NO [facility] FASTING: NO Resulting Agency Comment Performing Organization Information: Site ID: [id number] Name: [facility] Address: [address] [place] [phone] Director: Zena Abreu Performing Organization Address [facility] Phone Number [facility] [employer] [address] [phone] * Vitamin B12 level (08/26/2017 10:23 AM CDT) Vitamin B12 728 200 - 1,100 pg/mL [employer] [place] Specimen Blood Narrative Performed At FASTING:NO [facility] FASTING: NO Resulting Agency Comment Performing Organization Information: Site ID: [id number] Name: [facility] Address: [address] [place] [phone] Director: Zena Abreu Performing Organization Address [facility] Phone Number [facility] [employer] [address] [address] * Comprehensive metabolic panel (08/26/2017 10:23 AM CDT) Glucose 95 65 - 139 mg/dL [employer] [facility] Comment: [place] Non-fasting reference interval BUN, whole blood 17 7 - 25 mg/dL [employer] [facility] [place] Creatinine 0.94 (H) 0.60 - 0.93 mg/dL [employer] [facility] Comment: [place] For patients >49 years of age, the reference limit for Creatinine is approximately 13% higher for people identified as -Estonian. EGFR Non-Afr. Estonian 58 (L) > OR=60 mL/min/1.73m2 [employer] [place] EGFR 67 > OR=60 mL/min/1.73m2 [employer] [place] BUN/creatinine ratio 18 6 - 22 (calc) [facility] [employer] [place] Sodium 142 135 - 146 mmol/L [facility] [place] Potassium 4.1 3.5 - 5.3 mmol/L [facility] [place] Chloride 105 98 - 110 mmol/L [facility] [place] CO2 30 20 - 31 mmol/L [facility] [place] Calcium 9.4 8.6 - 10.4 mg/dL [facility] [place] Protein 6.5 6.1 - 8.1 g/dL [employer] [facility] [place] Albumin, S 4.2 3.6 - 5.1 g/dL [employer] [facility] [facility] [place] Globulin, total 2.3 1.9 - 3.7 g/dL (calc) [employer] [place] Albumin/globulin ratio 1.8 1.0 - 2.5 (calc) [employer] [place] Total bilirubin 0.5 0.2 - 1.2 mg/dL [employer] [place] Alkaline phosphatase 43 33 - 130 U/L [employer] [place] AST 22 10 - 35 U/L [employer] [place] ALT 11 6 - 29 U/L [employer] [place] Specimen Blood Narrative Performed At FASTING:NO [facility] FASTING: NO Resulting Agency Comment Performing Organization Information: Site ID: [id number] Name: [facility] Address: [address] [place] [address] Director: Zena Abreu Performing Organization Address City/State/[facility] Phone Number [employer] [place] [address] [place] [phone] * ECG 12 lead (08/25/2017 10:53 AM CDT) Ventricular rate 59 [facility] Atrial rate 59 [facility] ID interval 274 [facility] QRSD interval 142 [facility] QT interval 448 [facility] QTC interval 443 [facility] P axis 1 72 [facility] QRS axis 1 50 [facility] T wave axis 29 [facility] EKG impression Sinus bradycardia with 1st [facility] degree AV block-Right bundle branch block-Abnormal ECG-In automated comparison with ECG of 24-APR-2011 09:48,-ID interval has increased-Right bundle branch block is now present- Performing Organization Address City/[facility] Hospital[facility] Phone Number [facility] [employer] [address] [place] [address] after 04/02/2017 Insurance Payer Benefit Subscriber ID Type Phone Address Plan / Group UHC MEDICARE UNITEDHC xxxxxxxxx [email or web address]IONS Advance Directives Patient has advance care planning documents on file. For more information, jules abrams contact: [facility] [address] [place] [address]
--- OUTSIDE RECORDS SUMMARY | 2018-04-03 13:43 | XMS REPORT ---
Author Author Beena Meléndez Organization [employer] Address Unknown Phone Unavailable Care Team Providers Care [employer] Supervisor Name Role Phone Beena Meléndez CP Unavailable Allergies, Adverse Reactions, Alerts Substance Reaction Event Type Codeine sick to stomach Drug Allergy Neomycin Sulfate Eye swollen Drug Allergy Indocin sick to stomach Drug Allergy Problems Problem Type Condition Code Onset Dates Condition Status Assessment Encounter for pre-operative cardiovascular clearance Z01.810 Active Problem Essential hypertension I10 Active Problem Bradycardia R00.1 Active Problem 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02 Active Assessment Diet-controlled diabetes mellitus E11.9 Active Assessment Essential hypertension I10 Active Medications Medication Code System Code Instructions Start Date End Date Status Dosage Meclizine HCl ND 07041890588 25 MG Orally Once a day Active 1 tablet as needed Aspirin ND 25242669988 81 MG Orally Once a day Active 1 tablet Vitamin B12 ND 55186142311 100 MCG Orally Active not defined Amlodipine-Olmesartan ND 30751776057 5-40 MG Orally Once a day Active 1 tablet Furosemide ND 84730831013 20 MG Orally Once a day Active 1 tablet Atenolol ND 07962176538 50 mg Orally Once a day Active 1/2 half tablet Vital Signs Date/Time: September 07, 2017 BMI 27.62 Index Weight 166 lbs Height 65 in Temperature 96.8 F Cardiac Monitoring Heart Rate 62 /min Blood Pressure Diastolic 84 mm Hg Blood Pressure Systolic 140 mm Hg Results No Known Results Summary Purpose [employer] Submission
--- OUTSIDE RECORDS SUMMARY | 2018-04-03 13:43 | XMS REPORT | Continuity of Care Document ---
Author Author [facility] Interface Address Unknown Phone Unavailable Problems Problem Status Onset Date Classification Date Reported Comments Source Exercise-induced shortness of breath Active Problem 02/04/2018 Beena Meléndez Bradycardia Active Problem 02/04/2018 Beena Meléndez Essential hypertension Active Problem 02/04/2018 Beena Meléndez Venous insufficiency (peripheral) Active Problem 02/04/2018 Beena Meléndez Diet-controlled diabetes mellitus Active Problem 02/04/2018 Beena Meléndez Status post ablation of incompetent vein using laser Active Problem 02/04/2018 Beena Meléndez Varicose veins of bilateral lower extremities with other complications Active Diagnosis 02/04/2018 Beena Meléndez Abnormal electrocardiogram Active Problem 02/04/2018 Beena Meléndez Encounter for pre-operative cardiovascular clearance Active Problem 02/04/2018 Beena Meléndez Medications Medication Details Route Status Patient Instructions Ordering Provider Order Date Source Clonidine HCl 1 tablet at bedtime Orally Active 0.1 MG Orally twice a day (bid) [facility] 10/27/2016 Beena Meléndez Losartan Potassium-HCTZ 1 tablet Orally Active 100-25 MG Orally Once a day [facility] 08/24/2016 Beena Meléndez Furosemide 1 tablet Orally Active 20 MG Orally Once a day Rika Meléndez Darren 1 tablet Orally Active 5-40 MG Orally Once a day Rika Meléndez Aspirin 1 tablet Orally Active 81 MG Orally Once a day Rika Meléndez Atenolol 1 tablet Orally Active 50 MG Orally Once a day Rika Meléndez Atenolol 1 tablet Orally Active 50 MG Orally Once a day Rika Meléndez Darren 1 tablet Orally Active 5-40 MG Orally Once a day Rika Meléndez Aspirin 1 tablet Orally Active 81 MG Orally Once a day Rika Meléndez Furosemide 1 tablet Orally Active 40 MG Orally Once a day Krisjoy Meléndez Furosemide 1 tablet Orally Active 40 MG [facility] Mecliz[facility] HCl 1 tablet as needed Orally Active 25 MG Orally [facility] [place] Vitamin B12 not defined Orally Active 100 MCG [facility] [place] Amlodipine-Olmesartan 1 tablet Orally Active 5-40 MG Orally [facility] [place] Allergies, Adverse Reactions, Alerts Substance Category Reaction Severity Reaction type Status Date Reported Comments Source Codeine Adverse Reaction sick to stomach Adverse Reaction Active 09/07/2017 [place] Neomycin Sulfate Adverse Reaction Eye swollen Adverse Reaction Active 09/07/2017 [facility] [place] Indocin Adverse Reaction sick to stomach Adverse Reaction Active 09/07/2017 [facility] [place] Immunizations Immunization Date Given Site Status Last Updated Comments Source Results Order Name Results Value Reference Range Date Interpretation Comments Source Vital Signs Vital Sign Value Date Comments Source Weight 166 09/07/2017 [facility] [place] Height 65 09/07/2017 [facility] [place] Temperature Oral (F) 96.8 F 09/07/2017 [facility] [place] Heart Rate 62 09/07/2017 [facility] [place] Diastolic (mm Hg) 84 09/07/2017 [facility] [place] Systolic (mm Hg) 140 09/07/2017 [facility] [place] Weight 174 10/27/2016 [facility] [place] Height 65 10/27/2016 [facility] [place] Temperature Oral (F) 98.6 F 10/27/2016 [facility] [place] Heart Rate 60 10/27/2016 [facility] [place] Diastolic (mm Hg) 80 10/27/2016 [facility] [place] Systolic (mm Hg) 132 10/27/2016 [facility] [place] Weight 174 08/24/2016 [facility] [place] Height 65 08/24/2016 [facility] [place] Temperature Oral (F) 98.6 F 08/24/2016 [facility] [place] Heart Rate 70 08/24/2016 [facility] [place] Diastolic (mm Hg) 78 08/24/2016 [facility] [place] Systolic (mm Hg) 126 08/24/2016 [facility] [place] Weight 172 07/08/2016 Beena Meléndez Height 65 07/08/2016 Beena Meléndez Temperature Oral (F) 97.6 F 07/08/2016 Beena Meléndez Heart Rate 77 07/08/2016 Beena Meléndez Diastolic (mm Hg) 76 07/08/2016 Beena Meléndez Systolic (mm Hg) 130 07/08/2016 Beena Meléndez Weight 173 06/21/2016 Beena Meléndez Height 65 06/21/2016 Beena Meléndez Temperature Oral (F) 97.0 F 06/21/2016 Beena Meléndez Heart Rate 77 06/21/2016 Beena Meléndez Diastolic (mm Hg) 78 06/21/2016 Beena Meléndez Systolic (mm Hg) 128 06/21/2016 Beena Meléndez Encounters Location Location Details Encounter Type Encounter Number Reason For Visit Attending Provider ADM Date DC Date Status Source Procedures Procedure Code Date Perfomer Comments Source
== END | disposition home or self-care (01) ==
LOC: OR 14:23
PROVIDERS: ATTEND Internal Medicine Gastroenterology
DX: Z12.11 Encounter for screening for malignant neoplasm of colon (principal); Z86.010 Personal history of colon polyps; K21.0 Gastro-esophageal reflux disease with esophagitis; K22.2 Esophageal obstruction; K29.70 Gastritis, unspecified, without bleeding; K63.5 Polyp of colon; K51.50 Left sided colitis without complications; K64.8 Other hemorrhoids; F41.9 Anxiety disorder, unspecified; G47.33 Obstructive sleep apnea (adult) (pediatric); I10 Essential (primary) hypertension; Z88.5 Allergy status to narcotic agent; Z88.8 Allergy status to other drugs, medicaments and biological substances
CPT/HCPCS: 36415; 43239; 43249; 45384; 45385; 83630; 83993; 85025; 87045; 87177; 87328; 87493; J1980; J2001; J2250; 43450; 45378; 45380

== ENCOUNTER → 2019-01-26 | Outpatient (CLI) | payer MEDICARE ==
[~2019-01-26] MED LIST changes: -FENTANYL CITRATE/PF 100MCG/2 ML INJ ONE; -HYOSCYAMINE SULFATE 0.5 MG/ML INJ ONE; -LIDOCAINE HCL 2% LOCAL INJ 5 ML SDV VIAL INJ ONE; -MIDAZOLAM HCL 2 MG/2 ML VIAL ONE; -PROPOFOL IV EMULSION 10 MG/ML 50 ML VIAL ONE
--- NOTE | 2019-01-26 15:17 | Diagnostic Imaging Report ---
Exam: Maxillofacial sinus CT without IV contrast History: Facial pain, sinus headache Comparison studies: Included bones from the facial CT of 09/14/2017. Technique: Axial images were obtained through the paranasal sinuses. Coronal and sagittal images reconstructed from the axial data. Dose modulation, iterative reconstruction, and/or weight based adjustment of the mA/kV was utilized to reduce the radiation dose to as low as reasonably achievable. Radiation dose: Total DLP: 306 mGy*cm. Estimated effective dose: DLP x 0.015 Intravenous contrast: None Findings: Right anterior complex: Frontal sinus: Clear. Frontonasal recess: Clear. Anterior ethmoid air cells: Clear. Ostiomeatal unit: Clear. Maxillary sinus: Clear. Left anterior complex: Frontal sinus: Clear. Frontonasal recess: Clear. Anterior ethmoid air cells: Clear. Ostiomeatal unit: Clear. Maxillary sinus: Clear. Posterior complex: Sphenoid sinuses: Clear. Sphenoethmoidal recesses: Clear. Posterior ethmoid air cells: Clear. Other: Nasal vestibule and cavity: Patent Nasal septum: At midline. Agger Nasi: Clear bilaterally. Turbinates: Non-aerated bilaterally. Evangelina cells: None Lamina papyracea: Intact. Cribriform plates: Symmetric, 6 mm below the level of the fovea ethmoidalis. Olfactory recesses: Clear Optic nerves: Not dehiscent Onodi cells: None Carotid canals: from the sphenoid sinuses by thin bony plates in the paraophthalmic segments, 8mm bony plate in the right petrous segment and thin bony plate in the left petrous segment. Left carotid canal may be dehiscent in the left paraophthalmic segment. (Sagittal series 500, image 30). Sphenoid sinuses: Dominant left sinus. Sphenoid septum inserts obliquely, posteriorly to the right of midline. Orbits: Please see dedicated report for orbits CT performed on same date. Bones: No abnormalities. Temporal bones: No gross abnormalities. Maxillary teeth: No periapical lucencies. Included cervical spine: Mild multilevel facet arthrosis. Incidental findings: Calcified atherosclerosis in the carotid bulbs and carotid siphons IMPRESSION: Clear paranasal sinuses with patent sinus drainage pathways. Signed by: Dr. Cooper Sanabria M.D. on 01/26/2019 3:14 PM
--- NOTE | 2019-01-26 15:23 | Diagnostic Imaging Report ---
History:Facial pain. Inflammation in eyes. Comparison studies:None Technique: Axial images were obtained through the orbits without contrast. Coronal and sagittal images reconstructed from the axial data. Dose modulation, iterative reconstruction, and/or weight based adjustment of the mA/kV was utilized to reduce the radiation dose to as low as reasonably achievable. Intravenous contrast: None. Findings: Globes: Intact. The anterior and posterior chambers are clear. Bilateral lens replacements. Optic nerves: Symmetric in size. Extraocular muscles: Normal in size and symmetric. Intraconal abnormalities: None. Superior ophthalmic veins: Normal in size and symmetric. Cavernous sinuses: Grossly symmetric. Moreover, evaluation is limited in the absence of IV contrast Pituitary stalk: Near midline. Optic chiasm: Grossly unremarkable, though suboptimally evaluated by noncontrast CT. Bones: No abnormalities. Sinuses: Clear. Soft tissues: No abnormalities. Incidental findings: Atherosclerotic calcifications in the carotid carotid bulbs and siphons. Mild multilevel facet arthrosis in the included cervical spine. IMPRESSION: 1. No orbital abnormalities. 2. Bilateral lens replacements for previous cataract surgery. Signed by: Dr. Cooper Sanabria M.D. on 01/26/2019 3:20 PM
== END ==
LOC: CT 13:35
PROVIDERS: ATTEND Ophthalmology
DX: R51 Headache (principal); J32.9 Chronic sinusitis, unspecified
CPT/HCPCS: 70480; 70486